=== PATIENT | male | born 1965 | race Caucasian/White ===

== ENCOUNTER 2023-12-30 01:32 | Inpatient (IN) ==
[2023-12-30] MEDS ORDERED: Sulfur Hexaflouride MICROSPHR 25 MG VIAL IV PRN (03:25)
[2023-12-30] MEDS ORDERED: Nicotine GUM 4MG FRUIT FLAVOR PO PRN (03:46)
[2023-12-30] MEDS ORDERED: Nicotine Lozenge mini 4 MG LOZNG.MINI MT PRN (03:46)
[2023-12-30 04:19] LABS: Hematocrit 41.8 % (38-53); Hemoglobin 14.2 g/dL (13.2-16.3); Mean Corpuscular Hemoglobin 33.4 pg (27-33); Mean Corpuscular Hgb Conc 33.9 g/dL (31-36); Mean Corpuscular Volume 98.3 fL (80-97); Mean Platelet Volume 7.7 fL (7.5-11.2); Platelet Count 257 10^3/uL (150-450); Red Blood Count 4.25 10^6/uL (4.06-5.63); Red Cell Distribution Width 13.4 % (12-17); White Blood Count 7.5 10^3/uL (3.6-10.2)
[2023-12-30] MEDS: Furosemide 40 mg/4 ml IV VIAL IV ONE ×2 (04:41→04:42)
[2023-12-30 04:52] LABS: Albumin 4.3 g/dL (3.2-5.2); Calcium 9.5 mg/dL (8.6-10.3); Creatinine, Serum 1.1 mg/dL (0.67-1.17); Globulin 2.2 g/dL (2-4); HDL Cholesterol 47.7 mg/dL; Magnesium 1.9 mg/dL (1.9-2.7); Potassium 4.5 mmol/L (3.5-5.0); Total Bilirubin 0.9 mg/dL (0.2-1.0); Total Protein 6.5 g/dL (6.4-8.9); eGFR CKD-EPI 77.3 (>60)
[2023-12-30] MEDS: Enoxaparin 40 MG/0.4 ML SYR SUBCUT SCH (05:39)
[2023-12-30] MEDS: Iohexol 350 (CONTRAST) 500 ML MDV IV ONE (07:38)
[2023-12-30 09:07] LABS: High Sensitivity Troponin 1 Hr 30 pg/mL (<20)
[2023-12-30 09:38] LABS: TSH Ultra Thyroid Stim Horm 0.94 mcIU/mL (0.34-5.60)
[2023-12-30 09:40] LABS: Free T3 3.95 pg/mL (2.5-3.9); Free T4 0.95 ng/dL (0.61-1.12)
[2023-12-30 09:45] LABS: Ferritin 218.9 ng/mL (24-336)
[2023-12-30] MEDS: Nicotine PATCH 21 MG/24 HR PATCH TRANSDERM SCH (10:23)
[2023-12-30] MEDS: Bumetanide IV 0.25 MG/ML 4 ml VIAL (1 mg) IV SLOW PU SCH (10:29)
[2023-12-30] MEDS: Magnesium Sulfate 2 gm BAG 2 GM/50 ML BAG IVPB ONE (10:50)
[2023-12-30] MEDS: Enoxaparin 40 MG/0.4 ML SYR SUBCUT ONE (17:42)
[2023-12-30] MEDS ORDERED: Enoxaparin 40 MG/0.4 ML SYR SUBCUT SCH (18:00)
[2023-12-31 06:56] LABS: Hematocrit 51.1 % (38-53); Hemoglobin 17.2 g/dL (13.2-16.3); Mean Corpuscular Hemoglobin 32.9 pg (27-33); Mean Corpuscular Hgb Conc 33.6 g/dL (31-36); Mean Platelet Volume 7.5 fL (7.5-11.2); Platelet Count 308 10^3/uL (150-450); Red Blood Count 5.21 10^6/uL (4.06-5.63); Red Cell Distribution Width 13.4 % (12-17); White Blood Count 18.2 10^3/uL (3.6-10.2)
[2023-12-31 07:33] LABS: ALT 70 U/L (7-52); Albumin 4.1 g/dL (3.2-5.2); Albumin/Globulin Ratio 1.6 (1-3); Alkaline Phosphatase 91 U/L (35-149); Anion Gap 14 mmol/L (2-16); Blood Urea Nitrogen 24 mg/dL (6-24); CO2 Carbon Dioxide 27 mmol/L (22-32); Calcium 9.6 mg/dL (8.6-10.3); Chloride 98 mmol/L (101-111); Globulin 2.6 g/dL (2-4); Glucose 101 mg/dL (70-100); Magnesium 2.3 mg/dL (1.9-2.7); Sodium 139 mmol/L (135-145); Total Bilirubin 1.1 mg/dL (0.2-1.0); Total Protein 6.7 g/dL (6.4-8.9); eGFR CKD-EPI 77.3 (>60)
[2023-12-31] MEDS: NS 0.9% 1000 ml BAG 1,000 ML IV SCH (08:57)
[2023-12-31 09:02] LABS: ABS Basophils 0.1 10^3/uL (0.0-0.1); ABS Neutrophils 13.2 10^3/uL (1.5-7.6); ABS Nucleated RBC 0.03 10^3/ul; Eosinophil % 0.1 %; Lymphocyte % 16.4 %; Nucleated Red Blood Cells % 0.2 %/100WBC (0.0-0.8)
[2023-12-31 09:59] LABS: Potassium Redraw 4.1 mmol/L (3.5-5.0)
[2023-12-31 10:21] LABS: Hematocrit 53.3 % (38-53); Hemoglobin 17.8 g/dL (13.2-16.3); Mean Corpuscular Hemoglobin 32.7 pg (27-33); Mean Corpuscular Hgb Conc 33.5 g/dL (31-36); Mean Corpuscular Volume 97.6 fL (80-97); Mean Platelet Volume 7.5 fL (7.5-11.2); Platelet Count 317 10^3/uL (150-450); Red Blood Count 5.46 10^6/uL (4.06-5.63); Red Cell Distribution Width 13.9 % (12-17); White Blood Count 15.9 10^3/uL (3.6-10.2)
[2023-12-31 10:30] LABS: ABS Basophils 0.1 10^3/uL (0.0-0.1); ABS Lymphocytes 2.2 10^3/uL (1.0-4.8); ABS Monocytes 1.6 10^3/uL (0.0-1.1); ABS Nucleated RBC 0.02 10^3/ul; Eosinophil % 0.2 %; Lymphocyte % 13.9 %; Nucleated Red Blood Cells % 0.1 %/100WBC (0.0-0.8)
[2023-12-31 10:34] LABS: Activated Partial Thrombo Time 31.3 seconds (26.0-38.0); INR 1.11 (0.85-1.14)
[2023-12-31] MEDS ORDERED: fentaNYL 100 mcg/2 ml 50 MCG/ML VIAL ONE (11:06)
[2023-12-31] MEDS ORDERED: Heparin 1,000 UNIT/ML 10 ml (10,000 UNITS) CATHLAB/DIALYSIS ONE (11:06)
[2023-12-31] MEDS ORDERED: VERAPAMIL 2.5 MG/ML 2 ML VIAL ** 5 mg/2 ml ONE (11:06)
[2023-12-31] MEDS ORDERED: Midazolam 5 mg/5 ml VIAL 1 mg/ml 5 ml VIAL (5 mg) ONE (11:06)
[2023-12-31] MEDS ORDERED: Lidocaine 1% MPF 5 ML VIAL ONE (11:07)
[2023-12-31] MEDS ORDERED: nitroGLYCERIN DRIP 25,000 MCG/250 ML BTL ONE (11:07)
[2023-12-31] MEDS ORDERED: Heparin 2 UNITS/ML 1000 mls 2,000 ML IV ONE (11:07)
[2023-12-31] MEDS ORDERED: Iohexol 350 (CONTRAST) 200 ML MDV IV ONE (11:07)
[2023-12-31] MEDS ORDERED: Iohexol 350 (CONTRAST) 100 ML PAK IV ONE (11:07)
[2023-12-31 11:17] LABS: ALT 69 U/L (7-52); Albumin 4.2 g/dL (3.2-5.2); Albumin/Globulin Ratio 1.6 (1-3); Alkaline Phosphatase 98 U/L (35-149); Anion Gap 14 mmol/L (2-16); Blood Urea Nitrogen 24 mg/dL (6-24); CO2 Carbon Dioxide 27 mmol/L (22-32); Calcium 9.6 mg/dL (8.6-10.3); Chloride 99 mmol/L (101-111); Creatinine, Serum 1.11 mg/dL (0.67-1.17); Globulin 2.6 g/dL (2-4); Glucose 99 mg/dL (70-100); Sodium 140 mmol/L (135-145); Total Bilirubin 1.2 mg/dL (0.2-1.0); Total Protein 6.8 g/dL (6.4-8.9); eGFR CKD-EPI 76.5 (>60)
[2023-12-31] MEDS ORDERED: Phenylephrine 40 mcg/mL 10mL (400mcg) SYRINGE ONE (11:57)
[2023-12-31] MEDS ORDERED: methylPREDNISolone SOD SUCC 125 mg 2 ML VIAL ONE (11:59)
[2023-12-31] MEDS ORDERED: Atropine 0.1 MG/ML 10 ml SYR (1 mg) ONE (11:59)
[2023-12-31] MEDS ORDERED: Norepinephrine 4 MG/250mL D5W 4,000 MCG/250 ML BAG IV ONE (12:06)
[2023-12-31] MEDS ORDERED: Ondansetron 4 mg VIAL 2 MG/ML 2 ml VIAL ONE (12:08)
[2023-12-31 12:46] LABS: POC SO2 75 %
[2023-12-31 12:46] LABS: POC SO2 65 %
[2023-12-31 12:46] LABS: POC SO2 88 %
[2023-12-31 14:20] LABS: Potassium, Whole Blood 3.3 mmol/L (3.4-4.5)
[2023-12-31] MEDS ORDERED: EPINEPHrine Anaphylaxis SYR CERTADOSE SYR KIT ONE (15:40)
[2023-12-31] MEDS: Enoxaparin 40 MG/0.4 ML SYR SUBCUT SCH (20:31)
[2024-01-01 08:02] LABS: ABS Lymphocytes 2.2 10^3/uL (1.0-4.8); ABS Monocytes 1.5 10^3/uL (0.0-1.1); ABS Neutrophils 15.3 10^3/uL (1.5-7.6); ABS Nucleated RBC 0.05 10^3/ul; Hematocrit 51.9 % (38-53); Hemoglobin 17.7 g/dL (13.2-16.3); Lymphocyte % 11.5 %; Mean Corpuscular Hemoglobin 33.4 pg (27-33); Mean Corpuscular Volume 98.3 fL (80-97); Mean Platelet Volume 7.9 fL (7.5-11.2); Nucleated Red Blood Cells % 0.3 %/100WBC (0.0-0.8); Platelet Count 333 10^3/uL (150-450); Red Blood Count 5.28 10^6/uL (4.06-5.63); Red Cell Distribution Width 13.7 % (12-17)
[2024-01-01 08:14] LABS: Albumin 3.9 g/dL (3.2-5.2); Albumin/Globulin Ratio 1.7 (1-3); Calcium 9.5 mg/dL (8.6-10.3); Creatinine, Serum 1.04 mg/dL (0.67-1.17); Globulin 2.3 g/dL (2-4); Magnesium 2.1 mg/dL (1.9-2.7); Potassium 4.4 mmol/L (3.5-5.0); Total Protein 6.2 g/dL (6.4-8.9); eGFR CKD-EPI 82.7 (>60)
[2024-01-02] MEDS ORDERED: Senna TAB 8.6 mg TAB PO PRN (01:00)
[2024-01-02 06:06] LABS: ABS Basophils 0.1 10^3/uL (0.0-0.1); ABS Lymphocytes 2.7 10^3/uL (1.0-4.8); ABS Monocytes 1.5 10^3/uL (0.0-1.1); ABS Neutrophils 9.9 10^3/uL (1.5-7.6); ABS Nucleated RBC 0.02 10^3/ul; Eosinophil % 0.3 %; Hemoglobin 17.9 g/dL (13.2-16.3); Mean Corpuscular Hemoglobin 32.6 pg (27-33); Mean Corpuscular Hgb Conc 33.8 g/dL (31-36); Mean Corpuscular Volume 96.6 fL (80-97); Mean Platelet Volume 7.7 fL (7.5-11.2); Nucleated Red Blood Cells % 0.2 %/100WBC (0.0-0.8); Platelet Count 332 10^3/uL (150-450); Red Blood Count 5.49 10^6/uL (4.06-5.63); Red Cell Distribution Width 13.5 % (12-17); White Blood Count 14.2 10^3/uL (3.6-10.2)
[2024-01-02 07:04] LABS: Calcium 9.3 mg/dL (8.6-10.3); Creatinine, Serum 0.94 mg/dL (0.67-1.17); eGFR CKD-EPI 93.4 (>60)
[2024-01-02] MEDS ORDERED: Sulfur Hexaflouride MICROSPHR 25 MG VIAL IV PRN (09:08)
[2024-01-02 10:21] VITALS: BP 116/64
[2024-01-02] MEDS: Polyethylene Glycol 3350 17 GM PACKET PO SCH (12:30)
== END 2024-01-02 16:25 | disposition home or self-care (01) | DRG 192 ==
LOC: EDHOLD 01:32 → ED 01:32 → SUATTDRO 03:28 → MEDTELE 04:38
PROVIDERS: ADMIT Internal Medicine; ATTEND Internal Medicine